=== PATIENT | female | born 1930 | race Caucasian/White ===

== ENCOUNTER → 2016-08-15 | Outpatient (CLI) | payer OTHER ==
[~2016-08-15] VITALS: Ht 160 cm; Wt 69.7 kg
[~2016-08-15] MED LIST: AMBIEN 5 MG TABL5 M1 PO; CLONAZEPAM 0.50.5 M1 PO; CYMBALTA30 MG PO; HYDROCHLOROTHIA25 M2 PO; MOBIC15 MG PO; NEURONTIN 300300 M1 PO; NORVASC5 MG PO; PRAVACHOL40 MG PO; SYMBICORT160 MCG/4. INH; TRAMADOL 50 MG50 MG PO; TRAZODONE HCL100 MG PO; VENTOLIN HFA 1818 GM INH
--- NOTE | ~2016-08-15 | HPC ---
[facility] [place] [address] PAIN MANAGEMENT CONSULTATION Name: NORY NEWBY [facility] [id number] Admission: 08/15/16 Attend Phys: Kt Moura DO Discharge: Date of : 32 Report #: [id number] THIS REPORT FOR: //name// CC: Marlene Moura The patient is an 86-year-old female seen in consultation at request of Dr. Mullen for evaluation of pain, mid upper back. The patient notes pain began in April without antecedent trauma and overuse. She has taken some ihqg-sna-itsvtmh anti-inflammatories with "some relief." She describes pain primarily with working in the yard, bending and lifting, again from about the mid back down to beltline. She notes pain is periodic and aching, rates anywhere from 5-9 on a 0-10 visual analog scale. She has been taken off of dytj-ejz-jxqtsvl anti-inflammatory, started on Meloxicam and tramadol by Dr. Mullen, she notes some efficacy with this. She notes no specific lumbar radicular symptoms, no myelopathic symptoms. REVIEW OF SYSTEMS: A complete review of systems was attached to chart and gone over with the patient. She is . She does not smoke or drink alcohol to excess. History of some hypertension, treated with amlodipine and hydrochlorothiazide; history of COPD for which she takes albuterol and Symbicort. She had smoked in the distant past, but has quit for greater than a decade. Dyslipidemia for which she takes statin medication. History of left breast cancer, treated with mastectomy and tamoxifen for 5 years. She has some chronic anxiety and depression. Tragically, she lost a daughter 9 years ago, though she does have a living daughter and a living son. She has been on trazodone since that time and Zolpidem to help with sleep. Gabapentin 300 mg at bedtime for many years, though she is not entirely clear for what this medication was started. She had worked at [employer] in [employer] for quite some time. She retired years ago. Her pain impact score is fairly high, scoring 40/70. PHYSICAL EXAMINATION: Reveals a 5 feet 2 inches, 147 pounds female, BMI is 27.2 kg/m2. Blood pressure 171/69, pulse 63, respirations are 14. Cranial nerves 2-12 are grossly intact. Pupils are equal, reactive to light and accommodation. Extraocular muscles are intact. Cervical range of motion is full. Thyroid is unremarkable. Upper extremity strength is preserved. Heart is regular rhythmical without murmur. Lungs are clear to auscultation. Abdomen is unremarkable. Rises from the chair using armrest. Rotation exacerbates mid back pain. She is tender for about T6-7 down to about L3-4. Pain is in the lumbar paravertebral muscles, though no acute spasm or trigger points are noted at this time. Lower extremity strength is symmetric. Straight leg raise is negative. Patellar and Achilles reflexes are preserved. Skin integument is intact. [address] [address] PAIN MANAGEMENT CONSULTATION Name: NORY NEWBY Room #: REG [place] Sebastian#: [id number] Admission: 08/15/16 Attend Phys: Kt Moura DO Discharge: Date of : 32 Report #: [id number] X-rays of the thoracic and lumbar spine from 07/25/2016, showed no acute fracture, desiccation, or subluxation, though she does have some degenerative changes, worse at L2-L3 and L5-S1, thoracic spine is fairly unremarkable altogether. ASSESSMENT: Myofascial pain component by history and physical exam. The patient with some complicated grieving and depression following of an adult child 9 years ago (daughter from breast cancer). RECOMMENDATIONS: Long discussion with the patient today about therapeutic option. She currently takes trazodone 100 mg 2 tablets at bedtime. We will have her drop this back to one tablet and add Cymbalta. The combination of serotonin and norepinephrine reuptake seems to be helpful for myofascial pain. We talked about quentin chi and range of motion. The patient had actually taken quentin chi classes before she relocated to her current home. She lives in a single floor condominium. It is [place] a retired village, it is simply a condominium in the community. Suggested that she have her daughter do some internet research to see if she can find quentin chi courses that are geographically desirable and (relatively) to the patient's current location. This may be a way to help her socialize in her new environment as well as to improve range of motion and flexibility in her back. Recommend she continue Meloxicam 15 mg daily and p.r.n. tramadol as prescribed by Dr. Mullen. I would like to see her back in about 4 weeks for reevaluation, we may likely increase Cymbalta to 60 mg a day. Thank you for allowing me to participate in the patient's care. We did talk about trigger point injections if pain becomes quite problematic, though presently it seems to be fairly nominal. By: 1520 0050 Kt Moura DO /nt
[2016-08-15 13:07] VITALS: BP 171/64
== END ==
LOC: PAIN 07:14
DX: G89.29 Other chronic pain (principal); I10 Essential (primary) hypertension; F17.210 Nicotine dependence, cigarettes, uncomplicated; Z85.3 Personal history of malignant neoplasm of breast; F41.8 Other specified anxiety disorders

== ENCOUNTER → 2017-01-02 | Outpatient (CLI) | payer OTHER | LOC: RAD 11:45 → EDSTATUS 01-31 12:59 | DX: M54.42 Lumbago with sciatica, left side (principal); M25.551 Pain in right hip; M25.552 Pain in left hip; M79.605 Pain in left leg ==

== ENCOUNTER 2017-06-25 08:22 | Inpatient (IN) | payer OTHER ==
[~2017-06-25] VITALS: Ht 162.6 cm; Wt 68.0 kg
--- NOTE | ~2017-06-25 | EKG ---
[place] [address] [facility] [place] [address] ELECTROCARDIOGRAM REPORT Name: NORY NEWBY Bharath [facility] [id number] Admission: 06/25/17 Attend Phys: Discharge: Date of : 32 Report #: [id number] THIS REPORT FOR: //name// [facility] ED Test Date: 2017-06-25 Test Time: 09:16:48 Pat Name: NORY NEWBY Department: Room: Gender: F Level Designer: cweisjose : 1930 Requested By: Aida Godinez Order Number: [id number] MD: Yifan Rico Measurements Intervals [place] Rate: 97 P: NM: QRS: 11 QRSD: 100 T: 269 QT: 314 QTc: 399 Interpretive Statements Atrial fibrillation Ventricular premature complex Low voltage, extremity leads Nonspecific repolarization abnormalities No previous ECG available for comparison Electronically Signed On 06-25-2017 11:33:12 SILVER DESIGNER by Yifan Rico [email or web address] <ELECTRONICALLY SIGNED> By: Yifan Rico MD, [facility] 06/25/17 1133 0916 5 Yifan Rico MD, FACC /EPI
[2017-06-25 08:24] VITALS: BP 169/65
[2017-06-25] MEDS ORDERED: ERYTHROMYCIN E3.5 G3 OPHTHALMIC (08:54)
[2017-06-25 08:55] LABS: HEMATOCRIT 43.2 % (37.0-47.0); HEMOGLOBIN 14.3 gm/dL (12.0-15.0); MCH 30.3 pg (26.0-34.0); MCHC 33.2 g/dL (28.0-37.0); MCV 91.2 fL (80.0-100.0); PLATELET COUNT 152 thou/uL (150-400); RBC 4.73 mil/uL (4.20-5.00); RDW 13.9 % (10.5-14.5); WBC 4.8 thou/uL (4.0-11.0)
[2017-06-25] MEDS ORDERED: COZAAR 25 MG TA25 M1 PO (08:55)
[2017-06-25] MEDS ORDERED: OMEPRAZOLE 20 M20 M1 PO (08:55)
[2017-06-25] MEDS ORDERED: FLONASE 0.05%50 MCG NASAL (08:55)
[2017-06-25] MEDS ORDERED: LOPRESSOR50 PO (08:55)
[2017-06-25] MEDS ORDERED: XARELTO10 MG PO (08:56)
[2017-06-25 09:04] LABS: ANION GAP 8 mmol/L (7-16); BUN 13 mg/dL (7-18); CALCIUM 9.2 mg/dL (8.5-10.1); CHLORIDE 98 mmol/L (98-107); CO2 33 mmol/L (21-32); CREATININE 1.1 mg/dL (0.6-1.0); GLUCOSE 153 mg/dL (74-106); POTASSIUM 3.4 mmol/L (3.5-5.1); SODIUM 139 mmol/L (136-145)
[2017-06-25 09:08] LABS: APTT 28.4 Seconds (24.5-32.8); INR 1.1; PROTIME 11.6 Seconds (9.3-11.4)
[2017-06-25 09:12] LABS: ALBUMIN 3.5 g/dL (3.4-5.0); DIRECT BILIRUBIN 0.2 mg/dL (<0.1-0.3); LIPASE 61 U/L (73-393); SGOT 32 U/L (15-37); SGPT 47 U/L (30-65); TOTAL BILIRUBIN 0.5 mg/dL (<0.1-1.0); TOTAL PROTEIN 6.6 g/dL (6.4-8.2); TROPONIN-I < 0.04 ng/mL (<0.06)
[2017-06-25 09:23] LABS: ABSOLUTE NEUTROPHILS 4.1 thou/uL (1.4-8.2)
[2017-06-25 09:24] LABS: ANISOCYTOSIS 1+; POLYCHROMASIA OCCASIONAL
[2017-06-25 10:33] LABS: URINE BILIRUBIN NEGATIVE (Negative); URINE BLOOD NEGATIVE (Negative); URINE CLARITY CLEAR; URINE COLOR YELLOW; URINE GLUCOSE-RANDOM* NEGATIVE (Negative); URINE KETONES 1+ (Negative); URINE NITRITE-REFLEX NEGATIVE (Negative); URINE PROTEIN (DIPSTICK) 1+ (Negative); URINE SPECIFIC GRAVITY >= 1.030 (1.005-1.035); URINE UROBILINOGEN 0.2 E.U./dl (0.2-1.0)
[2017-06-25 10:34] LABS: URINE LEUKOCYTES-REFLEX TRACE (Negative)
[2017-06-25 10:45] LABS: SQUAMOUS 0-3 Few /LPF (0-3)
[2017-06-25 10:46] LABS: BACTERIA-REFLEX 1-9 Few /HPF (None Seen); CASTS None Seen /LPF (None Seen); CRYSTALS None Seen /LPF (None Seen); URINE RBC None Seen /HPF (0-2); URINE WBC-REFLEX 0-5 Rare /HPF (0-5)
[2017-06-25 11:56] VITALS: BP 148/80
[2017-06-25 12:00] VITALS: BP 144/63
[2017-06-25] MEDS ORDERED: ELIQUIS2.5 MG PO (13:14)
[2017-06-25 16:21] VITALS: BP 138/74
[2017-06-25 20:20] VITALS: BP 151/84
[2017-06-25 22:34] VITALS: BP 151/84
[2017-06-26 04:40] VITALS: BP 148/91
[2017-06-26 08:01] VITALS: BP 152/88
[2017-06-26 15:32] VITALS: BP 141/77
[2017-06-26 20:04] VITALS: BP 160/89
[2017-06-27 04:04] VITALS: BP 149/98
[2017-06-27 06:56] LABS: ALBUMIN 2.9 g/dL (3.4-5.0); CALCIUM 8.2 mg/dL (8.5-10.1); CREATININE 0.9 mg/dL (0.6-1.0); MAGNESIUM 1.8 mg/dL (1.8-2.4); POTASSIUM 3.9 mmol/L (3.5-5.1); TOTAL BILIRUBIN 0.3 mg/dL (<0.1-1.0)
[2017-06-27 06:58] LABS: CHOLESTEROL 111 mg/dL (<200); HDL CHOLESTEROL 43 mg/dL (>40); LDL CHOLESTEROL 54 mg/dL (<100); TC:HDL 2.6 Ratio (Not establshd); TRIGLYCERIDE 70 mg/dL (<150); VLDL 14 mg/dL (<40)
[2017-06-27 07:25] LABS: TSH 1.578 uIU/mL (0.358-3.740)
[2017-06-27 08:30] VITALS: BP 173/75
[2017-06-27] MEDS ORDERED: FLAGYL500 MG PO (08:51)
[2017-06-27 11:54] VITALS: BP 173/75
[2017-06-27 13:47] VITALS: BP 173/75
== END 2017-06-27 13:47 | disposition home health service (06) | DRG 391 ==
LOC: ER 08:22 → 4E 11:34 → TBA 11:34 → 4E 11:56 → ENTRNSPT 06-27 12:12 → EDTRNSPTSTS 06-27 12:16 → 4E 06-27 13:47
PROVIDERS: Emergency Medicine; Registered Nurse
DX: K52.9 Noninfective gastroenteritis and colitis, unspecified (principal); E43 Unspecified severe protein-calorie malnutrition; E87.2 Acidosis; I48.91 Unspecified atrial fibrillation; J06.9 Acute upper respiratory infection, unspecified; I10 Essential (primary) hypertension; Z60.2 Problems related to living alone; T42.4X5A Adverse effect of benzodiazepines, initial encounter; Z68.25 Body mass index [BMI] 25.0-25.9, adult; Z90.12 Acquired absence of left breast and nipple; Z90.710 Acquired absence of both cervix and uterus; Z79.899 Other long term (current) drug therapy
CPT/HCPCS: 10783

== ENCOUNTER 2017-07-01 12:58 | Inpatient (IN) | payer OTHER ==
[~2017-07-01] VITALS: Ht 157.5 cm; Wt 67.0 kg
--- NOTE | ~2017-07-01 | HC ---
[facility] [place] [address] CONSULTATION Name: NORY NEWBY Room #: 434-[facility] IN M.R.#: [id number] Admission: 07/01/17 Attend Phys: Tremayne Tovar DO Discharge: 07/04/17 Date of : 32 Report #: [id number] THIS REPORT FOR: //name// CC: Tremayne Mullen DATE OF SERVICE: 07/03/2017 HISTORY OF PRESENT ILLNESS: The patient is an 87-year-old white female who was just hospitalized here at [facility] from 06/25/2017 to 06/27/2017, was discharged home after being treated for an upper respiratory infection and some diarrhea. She initially did well, but then began having more problems with weakness and had a fall when she basically just slid down and could not get up. She was readmitted on 07/01/2017. She has been evaluated by Cardiology as well and has been diagnosed with congestive heart failure. She was noted to have significant hypokalemia and history of atrial fibrillation. She has the recent viral illness. She is currently having problems with hypoxia and is needing 2-3 liters of nasal prong O2, which is new for her. We are seeing her in rehabilitation medicine consultation. PAST MEDICAL HISTORY: Includes atrial fibrillation, fall with right foot fracture in 2017, left mastectomy, and hysterectomy. PAST SURGICAL HISTORY: As noted above. ALLERGIES: No known drug allergies. HABITS: No history of tobacco or alcohol abuse. SOCIAL HISTORY: Condo, alone, one step, uses standard cane at night. There is a daughter that lives close by within about 5 minutes and another [place] that [place], was not on home O2 premorbidly. REVIEW OF SYSTEMS: Complains of generalized weakness and concern regarding her balance overall. No current complaints of chest pain. Some shortness of breath with increased activity. No abdominal discomfort. No focal extremity pain complaints. She had the prior right foot fracture in the past as noted above. PHYSICAL EXAMINATION: GENERAL: An pleasant 87-year-old slender white female in no obvious distress. She is alert. She is currently on nasal prong O2, 3 liters. VITAL SIGNS: Last recorded temperature is 99.2, pulse 68, respirations 20, and blood pressure 137/67. HEENT: Appeared to be benign. NEUROLOGIC: Facies appeared symmetric. She has functional range of motion of both upper extremities with strength grade 4-/5. DTRs are trace to 1. [facility] [address] [place] [address] CONSULTATION Name: NORY NEWBY Room #: 434-P [facility] IN [facility]#: [id number] Admission: 07/01/17 Attend Phys: Tremayne Tovar DO Discharge: 07/04/17 Date of : 32 Report #: [id number] extremities, no focal calf swelling, functional range of motion with strength grade 3+ to 4-/5. DTRs are trace to 1. She is getting up with physical therapy, has some decreased balance, and tends to desaturate some. OT to evaluate. ASSESSMENT: An 87-year-old white female with the following problem list: 1. Medical complexity with generalized debilitation. 2. Pulmonary rehabilitation. 3. Gait instability with falls. 4. Congestive heart failure. 5. Hypokalemia. 6. Atrial fibrillation. 7. Recent viral illness. PLAN: Would anticipate that the patient should be a good acute in-hospital inpatient rehabilitation candidate. OT is to evaluate as noted above. The patient and son are certainly amenable to this as the patient was just recently discharged and ended up being readmitted. The data consultant physicians could continue to follow while she is on the rehab mcintosh. We will be following along with you regarding her rehab therapy needs. <ELECTRONICALLY SIGNED> By: Shant Senior MD 07/04/17 1554 1151 2240 Shant Senior MD /[facility]
--- NOTE | ~2017-07-01 | EKG ---
[address] [place] [address] ELECTROCARDIOGRAM REPORT Name: NORY NEWBY Room #: 434-P ADM IN M.R.#: [id number] Admission: 07/01/17 Attend Phys: Tremayne Tovar DO Discharge: Date of : 32 Report #: [id number] THIS REPORT FOR: //name// [facility] ED Test Date: 2017-07-01 Test Time: 13:34:18 Pat Name: NORY NEWBY Department: Room: 434 Gender: F Char Filter Operator Helper: DAYANA : 1930 Requested By: Aida Godinez Order Number: [id number] MD: Yifan Rico Measurements Intervals [place] Rate: 71 P: AR: QRS: 14 QRSD: 97 T: -21 QT: 442 QTc: 481 Interpretive Statements Atrial fibrillation Poor R wave progression Nonspecific T wave abnormality Compared to ECG 06/25/2017 09:16:48 No significant change was found Electronically Signed On 07-03-2017 7:29:01 PLANT HEALTH CARE TECHNICIAN by Yifan Rioc [email or web address] <ELECTRONICALLY SIGNED> By: Yifan Rico MD, [facility] 07/03/17 0729 1334 33 Yifan Rico MD, [facility] /EPI
--- NOTE | ~2017-07-01 | HC ---
[facility] [place] [address] CONSULTATION Name: NORY NEWBY Room #: 434-P [facility] IN M.R.#: [id number] Admission: 07/01/17 Attend Phys: Tremayne Tovar DO Discharge: 07/04/17 Date of : 32 Report #: [id number] THIS REPORT FOR: //name// CC: Tremayne Mullen HISTORY OF PRESENT ILLNESS: The patient is an 87-year-old female who I saw 2-3 weeks ago in the office after she had become sick, but then presented with atrial fib at the prior hospitalization and with a fair ventricular response. I placed her on anticoagulation at that setting. It looks like she has been hospitalized here at [facility] last week for 3-4 days for some nausea, vomiting, diarrhea, viral symptoms. Apparently went home, but really was unable to, failure to thrive there which is generalized weakness, could not walk. So many complaints of shortness of breath and some wheezes, dry cough, nausea. Had some PND and orthopnea. She fell yesterday without any injury. Subsequently, came to the Emergency Room and admitted. She has been on a novel agent without any bleeding issues, 2.5 b.i.d. She also takes trazodone at night, Ultram, pravastatin, amlodipine, metoprolol tartrate 50 b.i.d., losartan 25, Flonase, HCTZ 25, Symbicort, meloxicam 15 and albuterol. She denies any chest pain or pressure. She is feeling fairly comfortable tonight, but just generally is generalized weak. LABORATORY DATA: Creatinine is 0.9, potassium 3.0 and this is being replaced. BNP was 4049. H and H was 15 and 44, white count 4.7. UA was not remarkable. The chest x-ray also did not show any acute process. PAST MEDICAL HISTORY: Positive for the recent illness, AFib, hypertension, hypercholesterolemia, left mastectomy, hysterectomy, foot fracture last year. ALLERGIES: No known drug allergies. SOCIAL HISTORY: Lives alone. She is , has children. No alcohol or tobacco. No illicit drug use. MEDICATIONS: Currently her medications here in the hospital also include Flagyl 500 b.i.d. and Cymbalta 30. HCTZ 25. She was given 40 of IV Lasix in the Emergency Room, Eliquis 2.5 b.i.d., metoprolol 50 b.i.d., trazodone 100 at night, Ambien 5 mg at night, clonazepam, gabapentin, and tramadol. REVIEW OF SYSTEMS: Essentially negative except for stated above, has generalized fatigue. PHYSICAL EXAMINATION: VITAL SIGNS: Blood pressure 160/80, pulse 70s and irregular. GENERAL: She is alert. HEENT: Eyes reveal no xanthelasmas or arcus senilis. Pharynx is clear. NECK: Shows preserved upstrokes without JVD or bruits. [address] [address] CONSULTATION Name: NORY NEWBY Room #: 434-P [facility] IN M.R.#: [id number] Admission: 07/01/17 Attend Phys: Tremayne Tovar DO Discharge: 07/04/17 Date of : 32 Report #: [id number] LUNGS: Show slight prolonged expiratory phase, but clear. CARDIOVASCULAR: Irregularly irregular; S1, S2. Faint systolic murmur is appreciated. ABDOMEN: Soft, slightly tender in the midepigastric. EXTREMITIES: Reveal 1+ edema distally. Distal pulses are diminished, but intact. NEUROLOGIC: Nonfocal. SKIN: Warm and dry without xanthoma or ulcer. MUSCULOSKELETAL: No gross joint deformity. Generalized arthritic changes. ASSESSMENT: 1. Status post fall, generalized weakness. 2. Status post apparent viral syndrome. 3. Atrial fibrillation, which was relatively recent controlled. 4. Acute systolic failure. 5. Hypertension. RECOMMENDATIONS AND PLAN: I think there is mild evidence for any real demise as far as systolic failure, not supported a lot by the chest x-ray or the BNP. I think there is still some residual weakness. Also, there is a significant amount of sedative and pain medications on board, perhaps decreasing some of these may be of some benefit. Her AFib rate appears to be controlled, but I will put her on telemetry. She does take metoprolol and would certainly continue the anticoagulation as she would be high risk for a thromboembolic event from that AFib. I will obtain the records from the office from a couple of weeks ago as well as the echo Doppler, but I do not remember any severe LV dysfunction. Some relative fluid and sodium restriction and blood pressure control. We will follow with you. <ELECTRONICALLY SIGNED> By: Fam Gallagher MD, FACC 07/17/17 1427 2100 0610 Fam Gallagher MD, FACC /nt
[~2017-07-01 12:58] MED LIST changes: +COZAAR 25 MG TA25 M1 PO; +ELIQUIS2.5 MG PO; +ERYTHROMYCIN E3.5 G3 OPHTHALMIC; +FLAGYL500 MG PO; +FLONASE 0.05%50 MCG NASAL; +LOPRESSOR50 PO; +OMEPRAZOLE 20 M20 M1 PO; +XARELTO10 MG PO
[2017-07-01 13:08] VITALS: BP 158/66
[2017-07-01 15:07] LABS: HEMATOCRIT 44.9 % (37.0-47.0); HEMOGLOBIN 15.1 gm/dL (12.0-15.0); MCHC 33.6 g/dL (28.0-37.0); MCV 89.3 fL (80.0-100.0); PLATELET COUNT 181 thou/uL (150-400); RBC 5.03 mil/uL (4.20-5.00); RDW 14.4 % (10.5-14.5); WBC 4.7 thou/uL (4.0-11.0)
[2017-07-01 15:35] LABS: URINE BILIRUBIN NEGATIVE (Negative); URINE BLOOD NEGATIVE (Negative); URINE CLARITY CLEAR; URINE COLOR YELLOW; URINE GLUCOSE-RANDOM* NEGATIVE (Negative); URINE KETONES NEGATIVE (Negative); URINE LEUKOCYTES-REFLEX NEGATIVE (Negative); URINE NITRITE-REFLEX NEGATIVE (Negative); URINE PROTEIN (DIPSTICK) NEGATIVE (Negative); URINE SPECIFIC GRAVITY 1.015 (1.005-1.035); URINE UROBILINOGEN 0.2 E.U./dl (0.2-1.0)
[2017-07-01 15:39] LABS: ABSOLUTE NEUTROPHILS 2.8 thou/uL (1.4-8.2); ATYPICAL LYMPHS 1 %
[2017-07-01 16:29] LABS: CALCIUM 8.5 mg/dL (8.5-10.1); CREATININE 0.9 mg/dL (0.6-1.0)
[2017-07-01 16:35] LABS: ALBUMIN 2.7 g/dL (3.4-5.0); DIRECT BILIRUBIN 0.1 mg/dL (<0.1-0.3); TOTAL BILIRUBIN 0.4 mg/dL (<0.1-1.0); TOTAL PROTEIN 5.6 g/dL (6.4-8.2)
[2017-07-01 18:16] VITALS: BP 158/66
[2017-07-01 18:43] VITALS: BP 165/79
[2017-07-01 23:47] VITALS: BP 143/74
[2017-07-02 03:15] VITALS: BP 148/79
[2017-07-02 05:28] LABS: HEMATOCRIT 42.7 % (37.0-47.0); HEMOGLOBIN 14.2 gm/dL (12.0-15.0); MCH 29.9 pg (26.0-34.0); MCHC 33.2 g/dL (28.0-37.0); PLATELET COUNT 176 thou/uL (150-400); RBC 4.74 mil/uL (4.20-5.00); RDW 14.3 % (10.5-14.5); WBC 5.2 thou/uL (4.0-11.0)
[2017-07-02 05:33] LABS: CALCIUM 8.1 mg/dL (8.5-10.1); CREATININE 0.9 mg/dL (0.6-1.0); POTASSIUM 3.3 mmol/L (3.5-5.1)
[2017-07-02 09:07] VITALS: BP 150/64
[2017-07-02 09:08] LABS: ABSOLUTE NEUTROPHILS 3.3 thou/uL (1.4-8.2); ATYPICAL LYMPHS 1 %
[2017-07-02 09:09] LABS: ANISOCYTOSIS SLIGHT
[2017-07-02 17:32] VITALS: BP 156/73
[2017-07-02 19:32] VITALS: BP 149/86
[2017-07-03 04:07] VITALS: BP 148/86
[2017-07-03 08:00] VITALS: BP 137/67
[2017-07-03 10:07] LABS: ABSOLUTE NEUTROPHILS 3.9 thou/uL (1.4-8.2); BASOPHILS 0.4 % (0.0-2.0); EOSINOPHILS 1.7 % (0.0-3.0); HEMATOCRIT 46.3 % (37.0-47.0); HEMOGLOBIN 15.3 gm/dL (12.0-15.0); LYMPHOCYTES 20.4 % (24.0-44.0); MCHC 33.1 g/dL (28.0-37.0); MCV 90.5 fL (80.0-100.0); MONOCYTES 12.3 % (1.0-8.0); PLATELET COUNT 198 thou/uL (150-400); POLYS 65.2 % (36.0-66.0); RBC 5.11 mil/uL (4.20-5.00); RDW 14.3 % (10.5-14.5)
[2017-07-03 10:18] LABS: CALCIUM 8.4 mg/dL (8.5-10.1); CREATININE 0.9 mg/dL (0.6-1.0); MAGNESIUM 1.4 mg/dL (1.8-2.4); POTASSIUM 3.7 mmol/L (3.5-5.1)
[2017-07-03] MEDS ORDERED: Z-SLEEP50 MG/30 M PO (14:34)
[2017-07-03 16:00] VITALS: BP 137/54
[2017-07-03 22:48] VITALS: BP 142/68
[2017-07-04 05:07] VITALS: BP 130/83
[2017-07-04 08:00] VITALS: BP 140/70
[2017-07-04 08:59] VITALS: BP 140/70
== END 2017-07-04 14:59 | DRG 291 ==
LOC: ER 12:58 → EROBS 16:51 → 4S 16:51 → EROBS 18:17 → 4S 18:19
PROVIDERS: Emergency Medicine; Family Medicine
DX: I11.0 Hypertensive heart disease with heart failure (principal); E43 Unspecified severe protein-calorie malnutrition; I50.41 Acute combined systolic (congestive) and diastolic (congestive) heart failure; E87.6 Hypokalemia; J44.9 Chronic obstructive pulmonary disease, unspecified; E78.00 Pure hypercholesterolemia, unspecified; R26.9 Unspecified abnormalities of gait and mobility; I08.1 Rheumatic disorders of both mitral and tricuspid valves; I48.91 Unspecified atrial fibrillation; W18.30XA Fall on same level, unspecified, initial encounter; Y93.89 Activity, other specified; Y92.89 Other specified places as the place of occurrence of the external cause; Y99.8 Other external cause status; Z90.12 Acquired absence of left breast and nipple; Z90.710 Acquired absence of both cervix and uterus; Z87.81 Personal history of (healed) traumatic fracture; Z79.01 Long term (current) use of anticoagulants; Z79.51 Long term (current) use of inhaled steroids; Z79.899 Other long term (current) drug therapy
CPT/HCPCS: 10195

== ENCOUNTER 2017-07-04 10:44 | Inpatient (IN) | payer OTHER ==
[~2017-07-04] VITALS: Ht 160 cm; Wt 61.9 kg
--- NOTE | ~2017-07-04 | PLAN ---
[facility] [place] [address] REHAB UNIT PLAN OF CARE Name: NORY NEWBY Room #: 504-2 ADM IN M.R.#: [id number] Admission: 07/04/17 Attend Phys: Shant Senior MD Discharge: Date of : 32 Report #: [id number] THIS REPORT FOR: //name// CC: Shant Mullen DATE OF SERVICE: 07/06/2017 SUBJECTIVE: The patient is seen back today in followup. She is in no distress. Last recorded temperature 36.8, pulse 75, respirations 16, blood pressure 124/71. Transfers are min assist with gait min assist 150 feet front-wheeled walker. Lower body dressing with supervision. Therapy had some questions regarding decreased cognition. We will ask speech therapy to evaluate. ASSESSMENT: 1. Medical complexity with generalized debilitation. 2. Pulmonary rehabilitation. 3. Gait instability with history of falls. 4. Congestive heart failure. 5. Hypokalemia. 6. Atrial fibrillation. 7. Recent viral illness. PLAN: The overall plan of care is based on the preadmission screen, post-admission physician evaluation, and information garnered from therapy assessments. 1. Estimated length of stay is probably 7-14 days. 2. Medical prognosis is reasonably good. 3. Anticipated interventions include the interdisciplinary acute inpatient rehabilitation program with PT and OT working with her as well as speech therapy being added. Rehab nursing assisting regarding medication management, skin care prophylaxis, bowel and bladder issues and nursing education. We have the storage management consultant physicians to continue to follow while she is on the rehab mcintosh. The interdisciplinary acute inpatient rehabilitation team will be involved. 4. Anticipated functional outcomes would be for the patient to become modified independent with transfers, mobility, basic ADLs, so that she can return back to her condominium. 5. Expected therapy by discipline includes PT, OT and speech at this point one hour per day each, five days a week throughout the duration of the acute inpatient rehabilitation stay. We will need to see what happens as far as whether she will need the continued speech therapy. As far as duration, she is [address] [address] REHAB UNIT PLAN OF CARE Name: NORY NEWBY Room #: 504-2 ADM IN ..#: [id number] Admission: 07/04/17 Attend Phys: Shant Senior MD Discharge: Date of : 32 Report #: [id number] to have the 3 hours of therapy total, five days a week throughout the duration of her acute rehabilitation stay. <ELECTRONICALLY SIGNED> By: Shant Senior MD 07/07/17 1408 1036 [id number] Shant Senior MD /[facility]
--- NOTE | ~2017-07-04 | H ---
[facility] [place] [address] HISTORY AND PHYSICAL Name: NORY NEWBY Room #: 504-2 ADM IN M.R.#: [id number] Admission: 07/04/17 Attend Phys: Shant Senior MD Discharge: Date of : 32 Report #: [id number] THIS REPORT FOR: //name// CC: Shant Mullen DATE OF SERVICE: 07/04/2017 HISTORY AND PHYSICAL/POSTADMISSION PHYSICIAN EVALUATION HISTORY OF PRESENT ILLNESS: The patient is an 87-year-old white female, recently hospitalized at [facility] from 06/25/2017, to 06/27/2017, was discharged home after being treated for an upper respiratory infection and some diarrhea. She initially did well, then began having more problems with weakness and had a fall when she basically just slid down and could not get up. She was readmitted on 07/01/2017. She was evaluated by Cardiology and was diagnosed with congestive heart failure. She was noted to have significant hypokalemia and history of atrial fibrillation. She has recent viral illness. She was noted to have problems with hypoxia, needing 2-3 liters of nasal prong O2, which was new for her. She was noted to have medical complexity with generalized debilitation and a significant decline in her premorbid functional level. She has been admitted now for acute in-hospital inpatient rehabilitation. PAST MEDICAL HISTORY: Includes atrial fibrillation, fall with right foot fracture in 2017, left mastectomy, hysterectomy. PAST SURGICAL HISTORY: As noted above. ALLERGIES: No known drug allergies. HABITS: No history of tobacco or alcohol abuse. SOCIAL HISTORY: Lives in a condominium alone, one step; used a standard cane at night. There is a daughter who lives close by within about 5 minutes and another son that lives within the [place] area. She was not on home O2 premorbidly. REVIEW OF SYSTEMS: Complains of generalized weakness and concerned regarding her balance overall. No current complaints of chest pain. Some shortness of breath with increased activity. No abdominal discomfort. No focal extremity pain complaints. She had the prior right foot fracture in the past as noted above. PHYSICAL EXAMINATION: GENERAL: An 87-year-old white female, in no obvious distress. [address] [address] HISTORY AND PHYSICAL Name: NORY NEWBY Room #: 504-2 ADM IN ..#: [id number] Admission: 07/04/17 Attend Phys: Shant Senior MD Discharge: Date of : 32 Report #: [id number] VITAL SIGNS: Being checked. HEENT: Appeared to be benign. Cranial nerves are grossly intact. Facies appeared symmetric. CHEST: Decreased breath sounds diffusely. CARDIOVASCULAR: Regular rate and rhythm. ABDOMEN: Bowel sounds positive, nontender. GENITOURINARY AND RECTAL: Deferred. EXTREMITIES: She has functional range of motion of both upper extremities with strength grade 4-/5. DTRs are trace to 1. Lower extremities, no focal calf swelling. Functional range of motion with strength grade 3+ to 4-/5. DTRs are trace to 1. She has been demonstrating some decreased balance. Tends to desaturate with functional mobility and ADL deficits prior to her rehabilitation unit admission. ASSESSMENT: An 87-year-old white female with the following problem list: 1. Medical complexity with generalized debilitation. 2. Pulmonary rehabilitation. 3. Gait instability with history of falls. 4. Congestive heart failure. 5. Hypokalemia. 6. Atrial fibrillation. 7. Recent viral illness. PLAN: The patient is admitted for acute in-hospital inpatient rehabilitation. From a postadmission physician evaluation perspective, there are no relevant changes since the preadmission screening. Please see the above review of prior and current medical and functional conditions and comorbidities. Please see the patient's previous and current functional status. As far as risk of complications, the patient has multiple medical comorbidities as noted above. The initial plan of care involves the interdisciplinary acute inpatient rehabilitation program with the goal of maximizing the patient's functional independence, so she can hopefully return to her prior living situation. Measurable functional goals would be for her to become modified independent at least using a walker if not a cane and hopefully be able to wean off her O2. Prognosis is reasonably good with estimated length of stay probably at least 7-14 days. Potential barriers would include the multiple medical comorbidities and decreased functional status. The patient meets diagnostic criteria for an acute in-hospital inpatient rehabilitation stay. She meets medical necessity criteria [place] [address] HISTORY AND PHYSICAL Name: NORY NEWBY Room #: 504-2 ADM IN M.R.#: [id number] Admission: 07/04/17 Attend Phys: Shant Senior MD Discharge: Date of : 32 Report #: [id number] new vehicle sales consultant physicians continue to follow. She does have the tolerance for therapies and has appropriate discharge goals back to the home setting. <ELECTRONICALLY SIGNED> By: Shant Senior MD 07/05/17 1051 1546 1650 Shant Senior MD /[facility]
--- NOTE | ~2017-07-04 | HC ---
[facility] [place] [address] CONSULTATION Name: NORY NEWBY Room #: 509-P [facility] IN M.R.#: [id number] Admission: 07/04/17 Attend Phys: Shant Senior MD Discharge: Date of : 32 Report #: [id number] THIS REPORT FOR: //name// CC: Shant Sebastiana Mullen DATE OF SERVICE: 07/08/2017 NEUROBEHAVIORAL STATUS EXAM: ATTENDING PHYSICIAN: Shant Senior MD. TYPE BAR AND SEGMENT ASSEMBLER: Forrest Hackett, PhD. CLINICAL PRESENTATION: The patient is an 87-year-old female admitted to the rehabilitation unit at [facility] for comprehensive inpatient rehabilitation program to improve functional mobility, activities of daily living and self-care and mental status secondary to deficits from medical complexity with generalized debility. Her diagnoses also include pulmonary rehabilitation, gait instability with history of falls, congestive heart failure, hypokalemia, atrial fibrillation and recent viral illness. A complete description of her medical condition and history along with medications can be found in her medical record. Neuropsychological consultation was requested to provide assistance in the assessment of cognitive and emotional status and to provide recommendations and services. Prior to this most recent medical event, she was living independently in her own home. The patient has 2 living children. One daughter about 9 years ago at age 52 from breast cancer. Her from a CVA in the mid 1990s at age 67. The patient had one sister that from colon cancer. 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 She is a high school graduate. TECHNIQUES UTILIZED: Clinical interview, review of medical records, staff consultation and behavioral observation, mini mental status exam 2 standard version and clock drawing. EXAMINATION FINDINGS: The patient was alert and cooperative with the assessment. She accurately described events surrounding her admission. There is no evidence of aphasia. Her thoughts are logical and goal oriented. There is no evidence of thought disorder. Thought content is within normal limits. The patient described symptoms to include memory. She does not report difficulty with anxiety, depression, appetite, sleep or word finding. She reports having been independent with instrumental activities of daily living before this event. [facility] [address] [place] [address] CONSULTATION Name: NORY NEWBY Room #: 509-P [facility] IN M.R.#: [id number] Admission: 07/04/17 Attend Phys: Shant Senior MD Discharge: Date of : 32 Report #: [id number] Her performance on the MMSE 2 brief version is in the low average range with a raw score of 13 of 16, T score at 38, percentile rank of 12. She was 3 of 3 for initial registration, 5 of 5 for orientation to time, 4 of [address] and 1 of 3 for immediate recall of 3 items after a brief time delay and distraction. Her performance deteriorated to the borderline range with a raw score of 22 of 30 and a T score of 32, which was at the fourth percentile on the MMSE 2 standard version, she was 1 of 5 for serial sevens, 2 of 2 for naming, 1 of 1 for repetition, 3 of 3 for auditory comprehension. She could read and follow single command. The patient also was able to write a sentence. Visual spatial disorder was noted in her inability to accurately copy a simple geometric design. Performance and clock drawing was within normal limits for both hand placement and numbers. Deficits are noted in visual spatial construction. She was unable to accurately copy a simple geometric design. The patient is presenting with mild deficits in immediate recall and sustained attention and concentration along with visual spatial construction. She does not report anxiety or depression. However, decreased cognition is noted. 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 Accommodations for deficits in visual-spatial construction, memory and concentration will be necessary. Followup neuropsych assessment will be of benefit to clarify the severity of cognitive deficits. The use of memory/orientation notebook and note taking will be helpful. Increased assistance at home upon discharge necessary to maintain safety. Thank you very much for allowing me to provide the consultation on this patient. <ELECTRONICALLY SIGNED> By: Forrest Hackett, PhD 07/09/17 [id number] [id number] [id number] Forrest Hackett, PhD /nt
[~2017-07-04 10:44] MED LIST changes: +Z-SLEEP50 MG/30 M PO
[2017-07-04 15:00] VITALS: BP 139/75
[2017-07-04 19:40] VITALS: BP 137/60
[2017-07-05 04:23] LABS: BUN 15 mg/dL (7-18); CHLORIDE 93 mmol/L (98-107); GLUCOSE 98 mg/dL (74-106); MAGNESIUM 1.6 mg/dL (1.8-2.4); POTASSIUM 3.1 mmol/L (3.5-5.1); SODIUM 137 mmol/L (136-145)
[2017-07-05 04:28] LABS: CO2 > 45 mmol/L (21-32)
[2017-07-05 05:16] LABS: HEMATOCRIT 45.1 % (37.0-47.0); HEMOGLOBIN 14.8 gm/dL (12.0-15.0); MCH 29.6 pg (26.0-34.0); MCHC 32.8 g/dL (28.0-37.0); MCV 90.2 fL (80.0-100.0); RDW 13.8 % (10.5-14.5); WBC 6.7 thou/uL (4.0-11.0)
[2017-07-05 07:45] VITALS: BP 123/57
[2017-07-05 20:00] VITALS: BP 122/63
[2017-07-06 04:17] LABS: CALCIUM 8.7 mg/dL (8.5-10.1); MAGNESIUM 2.1 mg/dL (1.8-2.4); POTASSIUM 3.8 mmol/L (3.5-5.1)
[2017-07-06 08:41] VITALS: BP 124/71
[2017-07-06 20:36] VITALS: BP 125/88
[2017-07-07 20:16] VITALS: BP 141/80
[2017-07-08 08:00] VITALS: BP 146/65
[2017-07-08 19:49] VITALS: BP 143/85
[2017-07-09 03:38] LABS: ALBUMIN 2.7 g/dL (3.4-5.0); CALCIUM 8.9 mg/dL (8.5-10.1); CREATININE 0.9 mg/dL (0.6-1.0); PHOSPHORUS 3.4 mg/dL (2.5-4.9); POTASSIUM 3.6 mmol/L (3.5-5.1)
[2017-07-09 08:00] VITALS: BP 140/79
[2017-07-09 21:10] VITALS: BP 135/76
[2017-07-10 05:46] LABS: HEMATOCRIT 43.8 % (37.0-47.0); HEMOGLOBIN 14.5 gm/dL (12.0-15.0); MCH 29.7 pg (26.0-34.0); MCHC 33.1 g/dL (28.0-37.0); MCV 89.7 fL (80.0-100.0); PLATELET COUNT 272 thou/uL (150-400); RBC 4.88 mil/uL (4.20-5.00); RDW 13.5 % (10.5-14.5)
[2017-07-10 06:01] LABS: CALCIUM 9.2 mg/dL (8.5-10.1); CREATININE 0.8 mg/dL (0.6-1.0); MAGNESIUM 1.6 mg/dL (1.8-2.4); POTASSIUM 3.8 mmol/L (3.5-5.1)
[2017-07-10 07:30] VITALS: BP 160/102
[2017-07-10 11:56] VITALS: BP 133/78
[2017-07-10 20:10] VITALS: BP 171/92
[2017-07-11 08:15] VITALS: BP 152/72
[2017-07-11 19:33] VITALS: BP 185/107
[2017-07-12 08:30] VITALS: BP 143/95
[2017-07-12 19:21] VITALS: BP 158/78
[2017-07-13 02:11] LABS: URINE BILIRUBIN NEGATIVE (Negative); URINE BLOOD NEGATIVE (Negative); URINE CLARITY CLEAR; URINE COLOR YELLOW; URINE GLUCOSE-RANDOM* NEGATIVE (Negative); URINE KETONES NEGATIVE (Negative); URINE LEUKOCYTES-REFLEX NEGATIVE (Negative); URINE NITRITE-REFLEX NEGATIVE (Negative); URINE PROTEIN (DIPSTICK) NEGATIVE (Negative); URINE SPECIFIC GRAVITY <= 1.005 (1.005-1.035); URINE UROBILINOGEN 0.2 E.U./dl (0.2-1.0)
[2017-07-13 08:20] VITALS: BP 152/77
[2017-07-13 16:38] VITALS: BP 152/77
[2017-07-13 16:39] VITALS: BP 152/77
[2017-07-13 19:52] VITALS: BP 153/85
[2017-07-14 07:15] VITALS: BP 136/80
[2017-07-14] MEDS ORDERED: ELIQUIS2.5 MG PO (10:00)
[2017-07-14] MEDS ORDERED: COZAAR 25 MG TA25 M1 PO (10:00)
[2017-07-14] MEDS ORDERED: BISACODYL SUPP10 MG RECTAL (10:00)
[2017-07-14] MEDS ORDERED: ARTIFICIAL TEA1 EACH OPHTHALMIC (10:00)
[2017-07-14] MEDS ORDERED: SIMETHICON CHEW80 M1 PO (10:00)
[2017-07-14] MEDS ORDERED: ZYRTEC10 MG PO (10:00)
[2017-07-14] MEDS ORDERED: ARTIFICIAL TEAR15 M1 OPHTHALMIC (10:00)
[2017-07-14] MEDS ORDERED: COLACE100 MG PO (10:00)
[2017-07-14] MEDS ORDERED: NEURONTIN 300300 M1 PO (10:00)
[2017-07-14] MEDS ORDERED: LOPRESSOR50 PO (10:00)
[2017-07-14] MEDS ORDERED: MAGOX 400400 MG PO (10:00)
[2017-07-14 12:46] VITALS: BP 152/77
[2017-07-14] MEDS ORDERED: LASIX 40 MG TAB40 M2 PO (15:59)
== END 2017-07-14 16:48 | disposition home health service (06) | DRG 948 ==
LOC: ENTRNSPT 07-14 15:42 → EDTRNSPTSTS 07-14 15:44
PROVIDERS: Hospitalist; Nurse Practitioner; Nurse Practitioner Acute Care; Physical Medicine & Rehabilitation
DX: R53.81 Other malaise (principal); I50.30 Unspecified diastolic (congestive) heart failure; R26.9 Unspecified abnormalities of gait and mobility; I48.91 Unspecified atrial fibrillation; E87.6 Hypokalemia; G31.84 Mild cognitive impairment of uncertain or unknown etiology; E83.42 Hypomagnesemia; R09.02 Hypoxemia; R06.89 Other abnormalities of breathing; R29.6 Repeated falls; J44.9 Chronic obstructive pulmonary disease, unspecified; E04.1 Nontoxic single thyroid nodule; R13.10 Dysphagia, unspecified; I11.0 Hypertensive heart disease with heart failure; Z90.710 Acquired absence of both cervix and uterus; Z90.12 Acquired absence of left breast and nipple; Z87.81 Personal history of (healed) traumatic fracture; Z91.81 History of falling; Z79.899 Other long term (current) drug therapy
CPT/HCPCS: 10092; 10112

== ENCOUNTER → 2017-11-07 | Outpatient (CLI) | payer OTHER ==
[~2017-11-07] MED LIST changes: +ARTIFICIAL TEA1 EACH OPHTHALMIC; +ARTIFICIAL TEAR15 M1 OPHTHALMIC; +BISACODYL SUPP10 MG RECTAL; +COLACE100 MG PO; +LASIX 40 MG TAB40 M2 PO; +MAGOX 400400 MG PO; +SIMETHICON CHEW80 M1 PO; +ZYRTEC10 MG PO
== END ==
LOC: MRI 11-01 06:14
DX: J34.1 Cyst and mucocele of nose and nasal sinus (principal); G31.89 Other specified degenerative diseases of nervous system; I99.8 Other disorder of circulatory system; R41.82 Altered mental status, unspecified; R41.3 Other amnesia; R51 Headache; R42 Dizziness and giddiness

== ENCOUNTER → 2018-02-15 | Outpatient (CLI) | payer OTHER | LOC: RAD 14:30 | DX: I70.8 Atherosclerosis of other arteries (principal); M25.511 Pain in right shoulder; M41.86 Other forms of scoliosis, lumbar region; J84.10 Pulmonary fibrosis, unspecified; I48.91 Unspecified atrial fibrillation ==

== ENCOUNTER → 2018-09-10 | Outpatient (CLI) | payer OTHER ==
[~2018-09-10] VITALS: Ht 160 cm; Wt 58.1 kg
[~2018-09-10] MED LIST changes: +ALEVE220 MG PO; +CENTRUM SILVER1 EAC4 PO; +DEMADEX20 MG PO; +ELIQUIS5 MG PO; +KLOR-CON M1010 MEQ PO; +METOPROLOL SUCC50 MG PO; +PROTONIX40 M1 PO; +STOOL SOFTENER100 MG PO; +XARELTO15 MG PO; +ZALEPLON 10 MG10 M1 PO
--- NOTE | 2018-09-11 17:06 | PATH ---
[facility] [address] [place] [address] PATHOLOGY RPT PROCEDURE Name: LAVONNE NEWBY Room #: REG INDIO Sebastian#: [id number] ������������������ Admission: 09/10/18 ������������������ Date of : 32 Discharge: Report #: [id number] Path Case #: [id number] [facility] Accession Number: [id number] . 01 Material submitted: . stomach - BX GASTRITIS R/O H PYLORI . 01 Clinical history: . Pre-OP DX: Melena Post-OP DX: Gastritis, esophagitis, Schatzki's ring, small hiatal hernia . 02 Diagnosis: Gastric mucosa, gastritis R/O H. pylori, endoscopic biopsy: - Moderately reactive gastropathy. - Negative for intestinal metaplasia or atrophy. - Negative for Helicobacter pylori (properly controlled immunohistochemical stain performed). . (IUV:rebecca; 09/11/2018) QMS/09/11/2018 . 02 Electronically signed: . Елена Tate MD, Pathologist NPI- [id number] . 01 Gross description: . Received in formalin labeled "Lavonne Newby, gastric BX, rule out H. pylori," are 2 segments of lopez soft tissue measuring 0.9 x 0.2 x 0.2 cm in aggregate dimensions and ranging from 0.4 to 0.5 cm in maximum dimension. The specimen is submitted entirely in cassette A1. (TSD; 09/10/2018) TOB/TOB . 02 Pathologist provided ICD-10: K31.9 . 02 CPT . 355196, Y62258 Specimen Comment: A courtesy copy of this report has been sent to Specimen Comment: [phone], . Specimen Comment: Report sent to / DR WAYNE Performed at: [address] [id number] MD You Shipley MD Phone: [phone] Performed at: [address] [address] PATHOLOGY RPT PROCEDURE Name: LAVONNE NEWBY Room #: REG CLI Mateus.Keely.#: [id number] ������������������ Admission: 09/10/18 ������������������ Date of : 32 Discharge: Report #: [id number] Path Case #: [id number] [address] [place] [id number] MD Елена Tate MD Phone: [phone]
== END | disposition home or self-care (01) ==
LOC: GI 09:51
DX: K31.9 Disease of stomach and duodenum, unspecified (principal); K22.2 Esophageal obstruction; K44.9 Diaphragmatic hernia without obstruction or gangrene; K29.70 Gastritis, unspecified, without bleeding; K20.9 Esophagitis, unspecified; I11.0 Hypertensive heart disease with heart failure; I50.9 Heart failure, unspecified; E78.5 Hyperlipidemia, unspecified; I48.91 Unspecified atrial fibrillation; K21.9 Gastro-esophageal reflux disease without esophagitis; Z90.710 Acquired absence of both cervix and uterus; Z98.41 Cataract extraction status, right eye; Z98.42 Cataract extraction status, left eye; Z79.01 Long term (current) use of anticoagulants; Z85.3 Personal history of malignant neoplasm of breast; Z79.899 Other long term (current) drug therapy; Z98.890 Other specified postprocedural states
CPT/HCPCS: 62110; 62900

== ENCOUNTER → 2019-03-12 | Outpatient (CLI) | payer OTHER | LOC: CAT 09:46 | DX: K42.9 Umbilical hernia without obstruction or gangrene (principal); I25.10 Atherosclerotic heart disease of native coronary artery without angina pectoris; N28.1 Cyst of kidney, acquired; I70.0 Atherosclerosis of aorta; K44.9 Diaphragmatic hernia without obstruction or gangrene; K57.30 Diverticulosis of large intestine without perforation or abscess without bleeding; M25.78 Osteophyte, vertebrae; Z90.710 Acquired absence of both cervix and uterus; Z90.722 Acquired absence of ovaries, bilateral; K40.90 Unilateral inguinal hernia, without obstruction or gangrene, not specified as recurrent; I11.9 Hypertensive heart disease without heart failure ==

== ENCOUNTER → 2019-07-29 | Outpatient (CLI) | payer OTHER | LOC: SJCVCIMAG 11:05 → RAD 11:05 | DX: J84.10 Pulmonary fibrosis, unspecified (principal); M43.8X4 Other specified deforming dorsopathies, thoracic region ==

== ENCOUNTER → 2019-10-24 | Outpatient (CLI) | payer OTHER | LOC: SJCVCIMAG 10:52 | PROVIDERS: ATTEND Internal Medicine Cardiovascular Disease | DX: I08.1 Rheumatic disorders of both mitral and tricuspid valves (principal); I48.20 Chronic atrial fibrillation, unspecified; I49.3 Ventricular premature depolarization; I25.10 Atherosclerotic heart disease of native coronary artery without angina pectoris; D68.59 Other primary thrombophilia; I50.32 Chronic diastolic (congestive) heart failure; E78.00 Pure hypercholesterolemia, unspecified; Z90.710 Acquired absence of both cervix and uterus; Z79.899 Other long term (current) drug therapy; Z87.891 Personal history of nicotine dependence ==

== ENCOUNTER → 2019-11-27 | Outpatient (CLI) | payer OTHER | END | disposition home or self-care (01) | LOC: MRI 12:31 | PROVIDERS: ATTEND Family Medicine | DX: S22.000A Wedge compression fracture of unspecified thoracic vertebra, initial encounter for closed fracture (principal); R06.00 Dyspnea, unspecified; I51.7 Cardiomegaly; I70.0 Atherosclerosis of aorta; X58.XXXA Exposure to other specified factors, initial encounter; Y93.89 Activity, other specified; Y92.89 Other specified places as the place of occurrence of the external cause; Y99.8 Other external cause status ==

== ENCOUNTER → 2020-02-10 | Outpatient (CLI) | payer OTHER | LOC: SJCVCIMAG 12:54 | PROVIDERS: ATTEND Internal Medicine Cardiovascular Disease | DX: I48.91 Unspecified atrial fibrillation (principal); R94.31 Abnormal electrocardiogram [ECG] [EKG]; N28.1 Cyst of kidney, acquired; I45.19 Other right bundle-branch block; R06.02 Shortness of breath; I10 Essential (primary) hypertension; D68.59 Other primary thrombophilia; J43.9 Emphysema, unspecified; R10.9 Unspecified abdominal pain; I48.20 Chronic atrial fibrillation, unspecified; E78.5 Hyperlipidemia, unspecified; J43.8 Other emphysema; Z79.899 Other long term (current) drug therapy ==

== ENCOUNTER → 2020-06-02 | Outpatient (CLI) | payer OTHER | LOC: SJCVC 10:37 | PROVIDERS: ATTEND Internal Medicine Cardiovascular Disease | DX: I48.20 Chronic atrial fibrillation, unspecified (principal); E78.00 Pure hypercholesterolemia, unspecified; D68.59 Other primary thrombophilia; I50.43 Acute on chronic combined systolic (congestive) and diastolic (congestive) heart failure; R60.9 Edema, unspecified; I38 Endocarditis, valve unspecified; Z87.891 Personal history of nicotine dependence; Z79.899 Other long term (current) drug therapy ==

== ENCOUNTER → 2020-06-17 | Outpatient (CLI) | payer OTHER ==
[~2020-06-17] VITALS: Ht 160 cm; Wt 70.3 kg
[~2020-06-17] MED LIST changes: +HYDROCODON-ACE1 EAC7 PO; -METOPROLOL SUCC50 MG PO; +TOPROL XL25 MG PO
[2020-06-17 13:14] VITALS: BP 159/79
--- NOTE | 2020-06-17 13:26 | NUR ---
Pain Clinic Assessment: 1. History of Osteoarthritis: BACK History of Rheumatoid Arthritis: 2. Height: 5 ft. 3 in. 160.0 cm. Weight: 155.0 lb. oz. 70.308 kg. Patient's BMI: 27.5 3. Vital Signs: BP: 159/79 Pulse: 83 Resp: 16 Temp: 02 Sat: 94 ECG Mon: 4. Pain Intensity: 8 5. Fall Risk: Dizziness: N Needs help standing or walking: N Fallen in the last 3 months: N Fall risk comments: 6. Patient on Blood Thinner: Y 7. History of Hypertension: Y 8. Opioid Therapy greater than 6 weeks: N Opiate Contract Signed: 9. Risk Assessment Tool Provided: LOW RISK / 10. Functional Assessment Tool: 11. Recreational Drug Use: Never Drug Type: Tobacco Use: Former Smoker Tobacco Type: Amount or Packs/day: How Many Years: Alcohol Use: No Frequency: Quant:
== END ==
LOC: PAIN 06:54
PROVIDERS: ATTEND Anesthesiology Pain Medicine
DX: M43.8X4 Other specified deforming dorsopathies, thoracic region (principal); S22.070D Wedge compression fracture of T9-T10 vertebra, subsequent encounter for fracture with routine healing; X58.XXXD Exposure to other specified factors, subsequent encounter

== ENCOUNTER → 2020-12-15 | Outpatient (CLI) | payer OTHER | LOC: SJCVCIMAG 12:30 | PROVIDERS: ATTEND Internal Medicine Cardiovascular Disease | DX: R94.31 Abnormal electrocardiogram [ECG] [EKG] (principal); I08.3 Combined rheumatic disorders of mitral, aortic and tricuspid valves; I48.20 Chronic atrial fibrillation, unspecified; I10 Essential (primary) hypertension; E78.00 Pure hypercholesterolemia, unspecified; D68.59 Other primary thrombophilia; I87.2 Venous insufficiency (chronic) (peripheral); E78.5 Hyperlipidemia, unspecified; F41.9 Anxiety disorder, unspecified; Z85.3 Personal history of malignant neoplasm of breast; Z87.891 Personal history of nicotine dependence; Z79.899 Other long term (current) drug therapy ==

== ENCOUNTER 2021-04-10 18:07 | Inpatient (IN) | payer OTHER ==
[~2021-04-10] VITALS: Ht 160 cm; Wt 72.3 kg
[2021-04-10 18:08] VITALS: BP 137/85
[2021-04-10] MEDS ORDERED: CLONAZEPAM 0.50.5 M1 PO (22:02)
[2021-04-10 22:31] LABS: ABSOLUTE NEUTROPHILS 7.4 thou/uL (1.4-8.2); BASOPHILS 0.5 % (0.0-2.0); EOSINOPHILS 1.3 % (0.0-3.0); HEMATOCRIT 43.8 % (37.0-47.0); HEMOGLOBIN 14.1 gm/dL (12.0-15.0); LYMPHOCYTES 11.2 % (24.0-44.0); MCH 31.6 pg (26.0-34.0); MCHC 32.2 g/dL (28.0-37.0); MCV 98.1 fL (80.0-100.0); MONOCYTES 9.5 % (1.0-8.0); PLATELET COUNT 263 thou/uL (150-400); POLYS 77.5 % (36.0-66.0); RBC 4.47 mil/uL (4.20-5.00); RDW 13.6 % (10.5-14.5); WBC 9.5 thou/uL (4.0-11.0)
[2021-04-10 23:09] LABS: CALCIUM 8.9 mg/dL (8.5-10.1); CREATININE 1.3 mg/dL (0.6-1.0); POTASSIUM 4.2 mmol/L (3.5-5.1)
[2021-04-10] MEDS ORDERED: MELATONIN10 M3 PO (23:22)
[2021-04-11 00:50] VITALS: BP 142/55
[2021-04-11 00:52] VITALS: BP 142/55
[2021-04-11 02:05] VITALS: BP 151/63
[2021-04-11 06:09] LABS: HEMATOCRIT 39.5 % (37.0-47.0); HEMOGLOBIN 12.8 gm/dL (12.0-15.0); MCH 31.5 pg (26.0-34.0); MCHC 32.3 g/dL (28.0-37.0); MCV 97.5 fL (80.0-100.0); RBC 4.05 mil/uL (4.20-5.00); RDW 13.6 % (10.5-14.5); WBC 7.2 thou/uL (4.0-11.0)
[2021-04-11 06:14] LABS: CREATININE 1.3 mg/dL (0.6-1.0); POTASSIUM 4.1 mmol/L (3.5-5.1)
[2021-04-11 08:00] VITALS: BP 164/65
--- NOTE | 2021-04-11 08:07 | NUR ---
RECEIVED CARE OF THIS PATIENT AT 0120 VIA W/C FROM ED ACCOMPANIED BY ED PERSONEL. PATIENT ALERT AND ORIENTED X4. R KNEE EDEMATOUS. UP TO BSC WITH ASSIST. SKIN TEAR ON L KNEE. C/O PAIN, MED GIVEN. SLEPT LITTLE THIS SHIFT.
--- NOTE | 2021-04-11 14:42 | NUR ---
ASSUMED PT CARE THIS AM. PT A&OX4, ABLE TO MAKE NEEDS KNOWN. PATIENT REPORTING PAIN IN THE RIGHT KNEE, NEW ORDER FOR PAIN MEDICATION RECEIVED. PATIENT REPORTING NO NUMBNESS OR TINGLING. PATIENT WITH BRUISING AND SWELLING NOTED TO THE RIGHT KNEE. IV REMAINS PATENT. PATIENT REMIANS ON TELEMETRY, RUNNING A FIB. MEDICATIONS TAKEN WITHOUT ISSUE. FALL PRECAUTIONS ARE IN PLACE, CALL LIGHT WITHIN REACH. PATIENT AMBULATORY WITH ASSIST TO THE BEDSIDE COMMODE AND REMAINS CONTINENT.
[2021-04-11 17:05] VITALS: BP 160/81
[2021-04-11 19:03] VITALS: BP 155/71
--- NOTE | 2021-04-12 04:41 | NUR ---
ASSUMED PT CARE THIS PM. PT IS ALERT AND ORIENTED X4. PT HAS NON-PITTING EDEMA TO THE RIGHT KNEEE. PT C/O PAIN WHICH WAS MANAGED BY PAIN MEDS. PT SLEPT FOR THE MOST PART OF THE SHIFT WITH NO DITRESS. PT DID NOT VERBALIZE ANY OTHER CONCERNS. FALL PRE CAUTIONS IN PLACE. WILL CONTINUE TO MONITOR.
[2021-04-12 05:20] LABS: HEMATOCRIT 36.1 % (37.0-47.0); HEMOGLOBIN 11.7 gm/dL (12.0-15.0); MCH 31.6 pg (26.0-34.0); MCHC 32.3 g/dL (28.0-37.0); MCV 97.8 fL (80.0-100.0); RBC 3.69 mil/uL (4.20-5.00); RDW 13.8 % (10.5-14.5); WBC 6.8 thou/uL (4.0-11.0)
[2021-04-12 05:32] VITALS: BP 138/71
[2021-04-12 05:54] LABS: CALCIUM 8.7 mg/dL (8.5-10.1); CREATININE 1.4 mg/dL (0.6-1.0); POTASSIUM 3.9 mmol/L (3.5-5.1)
[2021-04-12 07:10] VITALS: BP 143/68
--- NOTE | 2021-04-12 07:38 | EKG ---
[address] [address] ELECTROCARDIOGRAM REPORT Name: NORY NEWBY Room #: 461-P ADM IN M.R.#: [id number] Admission: 04/10/21 Attend Phys: Freeman Lewis MD Discharge: Date of : 32 Report #: [id number] [facility] ED Test Date: 2021-04-10 Test Time: 18:27:34 Pat Name: NORY NEWBY Department: Room: 461 Gender: F Brokerage Coordinator: [place] : 1930 Requested By: Noah Monk Order Number: [id number] MD: Kartik Ballard Measurements Intervals [place] Rate: 103 P: TN: QRS: 66 QRSD: 98 T: 91 QT: 385 QTc: 504 Interpretive Statements Atrial fibrillation Inferior infarct, 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
--- NOTE | 2021-04-12 07:39 | EKG ---
[address] [address] ELECTROCARDIOGRAM REPORT Name: NORY NEBWY Room #: 461- ADM IN M.R.#: [id number] Admission: 04/10/21 Attend Phys: Freeman Lewis MD Discharge: Date of : 32 Report #: [id number] [facility] ED Test Date: 2021-04-10 Test Time: 19:56:35 Pat Name: NORY NEWBY Department: Room: 461 Gender: F Investment Banker: isreal : 1930 Requested By: Noah Monk Order Number: [id number] MD: Kartik Ballard Measurements Intervals [place] Rate: 117 P: [place]: QRS: 68 QRSD: 93 T: -13 QT: 349 QTc: 487 Interpretive Statements Atrial fibrillation Borderline low voltage, extremity leads Compared to ECG 04/10/2021 18:27:34 Myocardial infarct finding no longer present Electronically Signed On 04-12-2021 7:38:59 FURNACE CLEANER by Kartik Ballard [email or web address] <ELECTRONICALLY SIGNED> By: Kartik Ballard MD, [facility] 04/12/21 0738 55 55 Kartik Ballard MD, FACC /EPI
[2021-04-12 11:45] VITALS: BP 137/72
--- NOTE | 2021-04-12 14:57 | NUR ---
PT ADMITTED RELATED TO RT KNEE HEMATOMA. CM REVIEWED CHART AND SPOKE WITH CARE TEAM. CM MET WITH PT AT [facility] THIS DAY. PT APPEARED TO BE A&O X4. CM ROLE INTRODUCED. PT INDICATED SHE LIVES ALONE IN A HOUSE WITH 1 STEP TO ENTER THROUGH THE GARAGE AND 3 STEPS THROUGH THE FRONT DOOR. PT INDICATED SHE HAD USED A CANE TO ASSIST WITH MOBILITY BRICK CHIMNEY SUPERVISOR. PT INDICATED SHE HAS A FWW AND A SHOWERCHAIR BUT HADN'T USED IT BRICK CHIMNEY SUPERVISOR. PT INDICATED SHE HAD USED [facility] IN THE PAST. CARE TEAM INDICATED THAT PT WOULD LIKELY BENEFIT FROM POST ACUTE CARE STAY UPON DC. PT ASKED THAT REFERRAL BE SENT TO [facility] FOR [facility]VIEW FOR POSSIBLE ADMISSION. CM FAXED REFERRAL. CM MET WI PT AND HER DTR EDWARD AT BEDSIDE AND INDICATED THAT ABOVE. CM FOLLOWING REGARDING DC PLANNING.
[2021-04-12 19:26] VITALS: BP 122/60
--- NOTE | 2021-04-13 03:16 | NUR ---
ASSUMED PT CARE THIS PM. PT IS ALERT AND ORIENTED X4. PT C/O PAIN WHICH WAS MANGED BY PRN PAIN MEDS. PT HAS LARISA WRAP ON THE RIGHT KNEE WITH AN ICE PACK. VS ARE WITHIN NORMAL RANGE. MEDS WERE GIVEN PER EMA ORDERS. PT IS ON RA. NO VISIBLE SIGN OF DISTRESS WAS NOTED. FALL PRECAUTIONS IN PLACE. WILL CONTINUE TO MONITOR.
[2021-04-13 07:38] LABS: CALCIUM 8.9 mg/dL (8.5-10.1); CREATININE 1.7 mg/dL (0.6-1.0)
[2021-04-13 07:44] VITALS: BP 108/89
[2021-04-13] MEDS ORDERED: HYDROCODON-ACE1 EAC7 PO (07:57)
[2021-04-13] MEDS ORDERED: ARTHRITIS PAIN100 GM TOP (07:57)
[2021-04-13] MEDS ORDERED: CLONAZEPAM 0.50.5 M1 PO (07:58)
[2021-04-13 08:56] VITALS: BP 108/89
[2021-04-13 09:02] LABS: HEMATOCRIT 37.3 % (37.0-47.0); HEMOGLOBIN 12.2 gm/dL (12.0-15.0); MCH 32.1 pg (26.0-34.0); MCHC 32.7 g/dL (28.0-37.0); MCV 98.1 fL (80.0-100.0); RBC 3.8 mil/uL (4.20-5.00); RDW 13.9 % (10.5-14.5); WBC 10.4 thou/uL (4.0-11.0)
--- NOTE | 2021-04-13 12:08 | NUR ---
called [facility] at [phone]. [facility] for them to call me back so that I can give them report.
--- NOTE | 2021-04-13 12:23 | NUR ---
CARE TEAM INDICATED THAT PT IS MEDICALLY STABLE TO DC TO [facility] THIS DAY. CM FAXED ORDERS. CM GAVE NURSE NUMBER FOR REPORT. [facility] TRAN[facility]ORT ARRANGED FOR 1300. CM NOTIFIED PT IN PERSON AND DTR OVER THE PHONE. THEY EXPRESSED UNDERSTANDING. NO OTHER CM INTERVENTION INDICATED. CASE CLOSED.
== END 2021-04-13 14:31 | DRG 605 ==
LOC: ER 18:07 → EROBS 23:21 → 4W 23:21
PROVIDERS: Hospitalist; Nurse Practitioner Family; Student in an Organized Health Care Education/Training Program; ADMIT Family Medicine; ATTEND Family Medicine
DX: S80.01XA Contusion of right knee, initial encounter (principal); N17.9 Acute kidney failure, unspecified; I48.20 Chronic atrial fibrillation, unspecified; I50.9 Heart failure, unspecified; J44.9 Chronic obstructive pulmonary disease, unspecified; Z20.822 Contact with and (suspected) exposure to COVID-19; I11.0 Hypertensive heart disease with heart failure; F41.9 Anxiety disorder, unspecified; Z90.12 Acquired absence of left breast and nipple; Z90.710 Acquired absence of both cervix and uterus; Z87.81 Personal history of (healed) traumatic fracture; W18.39XA Other fall on same level, initial encounter; Y93.89 Activity, other specified; Y92.89 Other specified places as the place of occurrence of the external cause; Y99.8 Other external cause status; Z79.899 Other long term (current) drug therapy
CPT/HCPCS: 10045

== ENCOUNTER 2021-04-26 09:19 | Emergency (ER) | payer OTHER ==
[~2021-04-26] VITALS: Ht 172.7 cm; Wt 72.6 kg
--- NOTE | ~2021-04-26 | EMS ---
[address] [address] EMS Patient Care Report Name: NORY NEWBY Room #: PRE VILMA Sebastian#: [id number] Admission: Attend Phys: Discharge: Date of : 32 Report #: [id number] THIS REPORT FOR: //name// Report Transmitted: 04/26/2021 09:23 EMS Care Summary [facility] MED-ACT Incident [id number] @ 04/26/2021 08:50 Incident [address] [place] [address] Patient NORY NEWBY Female, 89 Years 1930 Patient Address [address] [place] [address] Patient History Congestive Heart Failure (CHF),Hypertension (HTN),Atrial Fibrillation,Hypokalemia, Patient Allergies No known allergies, Patient Medications Metoprolol, Torsemide, Klonopin, Acetaminophen, Albuterol, Diclofenac, Pantoprazole, Tramadol, Chief Complaint "She's stroking out" Disposition Transported No Lights/[place] Dispatch Reason Stroke/CVA Transported To [facility] Narrative [address] [address] EMS Patient Care Report Name: NORY NEWBY Room #: [facility] Jaz#: [id number] Admission: Attend Phys: Discharge: Date of : 32 Report #: [id number] dispatched to the above location for C1 stroke. Upon arrival to the scene, pt can be found laying supine in bed, with care team from facility around her. The pt's eyes are closed, but she is repeating "my head hurts" over and over again. The pt is on a nasal canula. The pt's skin is pink, warm and dry. No audible breath sounds, JVD, accessory muscle use or body fluids noted. no fever, cough or shortness of breath noted. Left sided facial droop, slurred speech, left sided arm paralysis noted. Right sided fixed gaze also noted. No trauma noted. Upon arrival to the scene, pt's nurses stated "she's stroking out". The pt's nurses stated that the pt was last seen normal at "8 this morning". The pt stated that her head hurts but couldn't say when it started. The pt's nurses stated that the pt was admitted on the 13 of April. The pt's nurse stated that the pt has "A fib" but isn't on blood thinners because of her knee injury. The pt's nurse did not know when the pt stopped taking her blood thinners. The pt's nurses walked away and did not answer any more of EMS crew's questions. Upon arrival to the scene, pt contact is made. Primary and secondary assessment was performed. Vital signs were acquired. Code Stroke activated. The pt was loaded into the ambulance and transport to [place] was started. Vascular access was attempted but not obtained. Biocom was given with no questions or orders. Upon arrival to the hospital, the pt was moved to the CT table. Report was given and care was transferred to ED RN. Initial Vitals @PTAP: 90,R: 20,BP: 154/98,Pain: 6/10,GCS: 15,SpO2: 83,Revised Trauma: 12, @09:14P: 95,R: 20,BP: 139/69,Pain: 6/10,GCS: 15,SpO2: 89,Revised Trauma: 12, @09:08P: 86,R: 20,Pain: 6/10,GCS: 15,SpO2: 91,MA Suspected: false @09:02P: 67,R: 20,BP: 164/72,Pain: 6/10,GCS: 15,Temp: 96.4F,Glucose: 136,SpO2: 98,Revised Trauma: 12, Impression Stroke Procedures @09:08 12-Lead ECG @09:07 IV Therapy - Saline Lock 0cc (20 ga) Site: Forearm-Right Response: UnchangedFailed @09:00 Stroke Alert Response: Unchanged Timeline YARN WEIGHT AND STRENGTH TESTER,BP: 154/98 M,PULSE: 90,RR: 20 R,SPO2: 83 Ox,ETCO2: ,BG: ,PAIN: 6,GCS: 15, 08:48,Call Received 08:48,Psap Call [facility] [address] [place] [address] EMS Patient Care Report Name: NORY NEWBY Room #: [facility] M.R.#: [id number] Admission: Attend Phys: Discharge: Date of : 32 Report #: [id number] 08:50,Dispatched 08:51,En Route 08:56,On Scene 08:58,At Patient 09:00,Stroke Alert,Response: Unchanged 09:02,BP: 164/72 M,PULSE: 67,RR: 20 R,SPO2: 98 Ox,ETCO2: ,B,PAIN: 6,GCS: 15, 09:07,IV Therapy - Saline Lock 0cc 20 ga Site: Forearm-Right,Response: UnchangedFailed, 09:08,12-Lead ECG, 09:08,BP: / M,PULSE: 86,RR: 20 R,SPO2: 91 Ox,ETCO2: ,BG: ,PAIN: 6,GCS: 15, 09:09,Depart Scene 09:14,BP: 139/69 M,PULSE: 95,RR: 20 R,SPO2: 89 Ox,ETCO2: ,BG: ,PAIN: 6,GCS: 15, 09:16,At Destination 09:39,Call Closed Disclaimer v1.1 Copyright 2020 [employer] This EMS Care Summary contains data elements from the applicable legal record (which may be displayed differently). It is designed to provide pertinent information for the following purposes: continuity of care, clinical quality, and state data reporting. The complete legal record is available to ED staff and administrators of the receiving hospital in [employer]'s Patient Tracker. All data is provided "as is."
[~2021-04-26 09:19] MED LIST changes: +ARTHRITIS PAIN100 GM TOP; +MELATONIN10 M3 PO
[2021-04-26 09:59] LABS: ABSOLUTE NEUTROPHILS 7.3 thou/uL (1.4-8.2); BASOPHILS 0.8 % (0.0-2.0); EOSINOPHILS 1.4 % (0.0-3.0); HEMATOCRIT 40.2 % (37.0-47.0); HEMOGLOBIN 13.2 gm/dL (12.0-15.0); MCH 31.8 pg (26.0-34.0); MCHC 32.8 g/dL (28.0-37.0); MONOCYTES 7.6 % (1.0-8.0); PLATELET COUNT 324 thou/uL (150-400); POLYS 81.2 % (36.0-66.0); RBC 4.14 mil/uL (4.20-5.00); RDW 13.2 % (10.5-14.5); WBC 9.1 thou/uL (4.0-11.0)
[2021-04-26 10:08] LABS: CALCIUM 9.1 mg/dL (8.5-10.1); CREATININE 1.3 mg/dL (0.6-1.0); POTASSIUM 4.7 mmol/L (3.5-5.1)
[2021-04-26 10:18] LABS: ALBUMIN 3.2 g/dL (3.4-5.0); MAGNESIUM 2.5 mg/dL (1.8-2.4); TOTAL BILIRUBIN 0.7 mg/dL (0.2-1.0); TOTAL PROTEIN 7.7 g/dL (6.4-8.2)
[2021-04-26 10:22] LABS: APTT 25.1 Seconds (24.5-32.8); PROTIME 10.9 Seconds (10.5-12.1)
[2021-04-26 11:15] VITALS: BP 144/59
--- NOTE | 2021-04-27 08:03 | EKG ---
[address] [place] [address] ELECTROCARDIOGRAM REPORT Name: NORY NEWBY Room #: DEP VILMA Sebastian#: [id number] Admission: 04/26/21 Attend Phys: Discharge: 04/26/21 Date of : 32 Report #: [id number] [facility] ED Test Date: 2021-04-26 Test Time: 10:29:04 Pat Name: NORY NEWBY Department: Room: Gender: F Sleeve Maker: : 1930 Requested By: Tremayne Kelly Order Number: [id number] MD: Yifan Rico Measurements Intervals [place] Rate: 72 P: CT: QRS: 63 QRSD: 108 T: 5 QT: 402 QTc: 440 Interpretive Statements Atrial fibrillation Poor R wave progression Compared to ECG 04/10/2021 19:56:35 No significant changes Electronically Signed On 04-27-2021 8:03:29 REGISTERED MEDICAL TRANSCRIPTIONIST by Yifan Rico [email or web address] <ELECTRONICALLY SIGNED> By: Yifan Rico MD, [facility] 04/27/21 0803 1029 1029 Yifan Rico MD, FAC /EPI
== END 2021-04-26 11:20 | disposition home or self-care (01) ==
LOC: ER 09:19
PROVIDERS: Emergency Medicine
DX: I63.441 Cerebral infarction due to embolism of right cerebellar artery (principal); Z20.822 Contact with and (suspected) exposure to COVID-19; R47.1 Dysarthria and anarthria; J44.9 Chronic obstructive pulmonary disease, unspecified; I50.9 Heart failure, unspecified; I48.91 Unspecified atrial fibrillation; Z90.710 Acquired absence of both cervix and uterus; Z79.899 Other long term (current) drug therapy